=== PATIENT | female | born 1985 | race African-American/Black ===

== ENCOUNTER 2020-04-22 10:58 | Inpatient (IN) | payer OTHER, SELFPAY ==
[2020-04-19 14:46] VITALS: BMI 37.4
[2020-04-22] VITALS (41 sets, daily range): BP systolic 93–154; BP diastolic 38–125; PULSE 72–104; RESP 16–20; TEMP 35.9–36.4; O2SAT 99–100
--- NOTE | 2020-04-22 11:07 | PM.IMHP ---
H&P: HPI History of Present Illness Chief complaint: Section Narrative: Fadumo Warren is a 34 year old female presents for repeat section with tubal ligation. PNC with Dr Paris until the last month, records on chart. Three prior sections, and desires permant sterilization as well, which has been discussed at length. Review of Systems Review of Systems: All systems reviewed & are unremarkable except as noted in HPI and below PMFSH Family History Family History Other Unknown family medical history Social History Social History Smoking status: Never smoker Second hand tobacco smoke exposure: No Substance use: never Gender identity (if verbalized by the patient): Female Spiritual care concerns: No Meds Home Medications and Allergies Home Medications Medication Instructions Recorded Confirmed Type vit no.[id number] tablet 04/19/20 History [Classic ] Allergies Allergy/AdvReac Type Severity Reaction Status Date / Time No Known Allergies Allergy Verified 04/19/20 15:18 Exam Const: General: no acute distress Resp: Auscultation: clear to auscultation bilaterally Cardio: Rate: regular rate Rhythm: regular rhythm GI: GI Palp: Yes Soft to palpation Other: FH 39cm. FHT 140. Assessment and Plan Assessment and plan (1) Term : Code(s): Z34.90 - Encounter for supervision of normal , unspecified, unspecified trimester Status: Acute (2) Previous section: Code(s): Z98.891 - History of uterine scar from previous surgery Status: Acute (3) Encounter for female sterilization procedure: Code(s): Z30.2 - Encounter for sterilization Status: Acute Additional Plan Proceed with repeat with tubal ligation.
[2020-04-22] MEDS: LACTATED RINGERS 1,000 ML 125 ML IV CONT (11:29)
--- NOTE | 2020-04-22 11:31 | LDADM ---
This patient, Fadumo Warren, was admitted to OB Post 113 on 04/22/20 at 10:58. Plans for labor, pain management and were discussed with patient. Patient/family oriented to hospital policies and general routines including ID bracelet, bed and alarms, visiting hours, pain management, procedures, bathroom and other care routines, personal items, smoking policy, room service/diet and guest tray routines, infant security routines, and visiting hours. Patient/Family are encouraged to report perceived risks to care and to ask questions if they do not understand what they are told or what they should do. See OBIX for further documentation.
[2020-04-22 11:32] LABS: Basophils Percent Auto 0.5 % (0.2-1.2); Eosinophils Percent Auto 0.3 % (0-4.4); Hemoglobin 11.7 g/dL (12.0-15.0); Immature Granulocyte Absolute 0.01 K/mm3 (0.00-0.031); Immature Granulocyte Percent A 0.2 % (0-0.5); Lymphocytes Absolute Auto 1.58 K/mm3 (0.9-3.2); Lymphocytes Percent Auto 24.5 % (18.3-44.2); Mean Corpuscular HGB Conc 34.4 g/dl (32-36); Mean Corpuscular Hemoglobin 28.4 pg (26-34); Mean Corpuscular Volume 82.5 fl (80-100); Mean Platelet Volume 11.1 fl (7.4-10.4); Monocytes Absolute Auto 0.6 K/mm3 (0.1-0.6); Monocytes Percent Auto 8.7 % (2.6-8.5); Neutrophils Absolute Auto 4.3 K/mm3 (1.3-6.7); Neutrophils Percent Auto 65.8 % (45.5-73.1); Platelet Count Result 327 k/mm3 (150-375); Red Blood Count 4.12 M/mm3 (4.2-5.4); Red Cell Distribution Width 14.2 % (11.5-14.5); White Blood Count 6.5 K/mm3 (4.5-10.0)
--- NOTE | 2020-04-22 11:51 | P.PNAN_ITS ---
Anes - Initial Pre Proc Eval Procedure: Operation Date: 04/22/20 13:30 Proposed Procedures p Repeat Section With Bilateral Tubal Ligation - Howard Spear MD Date/Time: 04/22/20 11:51 Surgeon: Howard Spear MD Pre Op Diagnosis: Section Patient Data Age: 34 Gender: F Height: 1.65 m Weight: 102 kg Last Vital Signs Pulse 84 04/22/20 11:46 BP 136/78 04/22/20 11:46 Allergies Allergy/AdvReac Type Severity Reaction Status Date / Time No Known Allergies Allergy Verified 04/19/20 15:18 Home Medications Medication Instructions Recorded Confirmed Type vit no.[id number]-ezxjs 1 tablet PO DAILY 04/19/20 04/22/20 History [Classic ] Laboratory Tests 04/22/20 04/22/20 04/22/20 11:20 11:20 11:20 WBC 6.5 K/mm3 K/mm3 (4.5-10.0) RBC 4.12 M/mm3 L M/mm3 (4.2-5.4) Hgb 11.7 g/dL L g/dL (12.0-15.0) Hct 34.0 % L % (37.0-47.0) MCV 82.5 fl fl (80-100) MCH 28.4 pg pg (26-34) MCHC 34.4 g/dl g/dl (32-36) RDW 14.2 % % (11.5-14.5) Plt Count 327 k/mm3 k/mm3 (150-375) MPV 11.1 fl H fl (7.4-10.4) Immature Gran % (Auto) 0.2 % % (0-0.5) Neut % (Auto) 65.8 % % (45.5-73.1) Lymph % (Auto) 24.5 % % (18.3-44.2) [place] % (Auto) 8.7 % H % (2.6-8.5) Eos % (Auto) 0.3 % % (0-4.4) Baso % (Auto) 0.5 % % (0.2-1.2) Lymph # (Auto) 1.58 K/mm3 K/mm3 (0.9-3.2) [place] # (Auto) 0.6 K/mm3 K/mm3 (0.1-0.6) Eos # (Auto) 0.0 K/mm3 K/mm3 (0-0.3) Baso # (Auto) 0.0 K/mm3 K/mm3 (0.0-0.1) Abs Immat Gran (auto) 0.01 K/mm3 K/mm3 (0.00-0.031) Absolute Neuts (auto) 4.3 K/mm3 K/mm3 (1.3-6.7) Absolute Nucleated RBC 0.0 K/mm3 K/mm3 (0.0-0.012) Nucleated RBC % 0.0 % % (0.0-0.2) RPR Pending HIV 1&2 Ab/P24 Ag 4thGn Pending Patient hx anesthesia problems: none Family hx anesthesia problems: none PMFSH Family History Family History Other Unknown family medical history Social History Social History Smoking status: Never smoker Second hand tobacco smoke exposure: No Substance use: never Gender identity (if verbalized by the patient): Female Spiritual care concerns: No Anes - Eval Final PreProcedure Day of Procedure 04/22/20 11:51 Informed Consent: The patient's anesthetic plan and its attendant risks and benefits were discussed with the patient/family/POA. Questions were solicited and answers provided to the satisfaction of the patient/family/POA.
[2020-04-22 12:26] LABS: HIV 1/2 Ab P24 Ag Result Negative (Negative)
[2020-04-22] MEDS: LACTATED RINGERS 1,000 ML 999 ML IV CONT (12:57)
[2020-04-22] MEDS: ceFAZolin 2 GM/D5W 50 ML 2 GM/50 ML BAG IVPB (13:15)
--- NOTE | 2020-04-22 14:13 | PM.OBPRVD ---
OB - Delivery Note Procedure Procedure: Procedures Operation Date: 04/22/20 13:30 <No data on this case meets the specified criteria> Route of delivery: (With right partial salpingectomy (left tube surgically absent)) Specimen: Yes (right tubal segment) Estimated blood loss (mL): 500 Anesthesia type: Spinal Disposition: PACU Narrative: Patient prepped and draped in usual sterile manner for this procedure. Pfannenstiel incision was made and carried down to the fascia which was extended bilaterally the length of the skin incision. Superiorly and inferiorly dissected away from the rectus muscles which were bluntly dissected and the peritoneum was entered. Bladder flap was developed uterus was incised and vertex was delivered without difficulty. Rest of baby was delivered cord clamped and cut, placenta removed manually and the uterus was exteriorized. Placenta was cleared of membranes and clots and approximated using 0 Monocryl in a running interlocking manner with good approximation hemostasis noted. Prior to closing the bladder flap the bladder was dissected off the lower uterine segment. The left fallopian tube was surgically absent. The right fallopian tube was doubly ligated using 0 plain suture had this segment of tube was removed without difficulty. Uterus was returned to the abdomen, gutters were cleared of serosanguineous fluid and clots in the right tubal segment was inspected and noted be hemostatic uterine incision also noted to be hemostatic. All subfascial tissue was noted be hemostatic and the fascia was approximated using 0 Vicryl from the left angle to the midline in the right angle to the midline a running manner with good approximation hemostasis noted. Subcutaneous tissue was approximated 0 plain suture and shanita were used to approximate the skin edges. Baby Weeks of gestation at delivery: 39 gender: Male Weight (pounds): 7 Weight (ounces): 4 score one minute: 8 score five minutes: 9
[2020-04-22] MEDS: KETOROLAC 30 MG/ML VIAL (*BKC) IV PUSH (16:05)
[2020-04-22] MEDS: OXYTOCIN 30 UNITS/NS 500 ML 30 UNITS/500 ML BAG 125 UNITS IV CONT (16:33)
--- NOTE | 2020-04-22 16:42 | OBPPTRN ---
Patient transferred to post room # 280 via stretcher. Support person present. Oriented to unit, room, information board, rooming in, admission packet and security measures. Patient verbalizes understanding.
[2020-04-22] MEDS: LORATADINE 10 MG TABLET PO (18:13)
[2020-04-22] MEDS: DEXTROSE 5%/0.45% SOD CHL 1,000 ML 125 ML IV CONT (20:44)
[2020-04-22] MEDS: IBUPROFEN 600 MG TABLET PO (22:49)
[2020-04-23 04:15] VITALS: BP 121/72; PULSE 89; RESP 16; TEMP 36.6; O2SAT 98
[2020-04-23 05:44] LABS: Basophils Percent Auto 0.2 % (0.2-1.2); Eosinophils Percent Auto 0.2 % (0-4.4); Hemoglobin 9.4 g/dL (12.0-15.0); Immature Granulocyte Absolute 0.03 K/mm3 (0.00-0.031); Immature Granulocyte Percent A 0.3 % (0-0.5); Lymphocytes Absolute Auto 1.63 K/mm3 (0.9-3.2); Lymphocytes Percent Auto 18.3 % (18.3-44.2); Mean Corpuscular HGB Conc 33.6 g/dl (32-36); Mean Corpuscular Hemoglobin 28.3 pg (26-34); Mean Corpuscular Volume 84.3 fl (80-100); Mean Platelet Volume 11.2 fl (7.4-10.4); Monocytes Absolute Auto 0.7 K/mm3 (0.1-0.6); Monocytes Percent Auto 8.3 % (2.6-8.5); Neutrophils Absolute Auto 6.5 K/mm3 (1.3-6.7); Neutrophils Percent Auto 72.7 % (45.5-73.1); Platelet Count Result 247 k/mm3 (150-375); Red Blood Count 3.32 M/mm3 (4.2-5.4); White Blood Count 8.9 K/mm3 (4.5-10.0)
[2020-04-23 07:50] VITALS: BP 121/71; PULSE 87; RESP 18; TEMP 36.8; O2SAT 99
--- NOTE | 2020-04-23 07:51 | WPDANLDNPN2 ---
Anes-Prog Note L&D-Neuraxial Date/Time: 04/23/20 07:51 Neuraxial medications: intrathecal PF morphine Opiod-related complaints: pruritis Patient feedback: Patient satisfied with post-operative pain management.
--- NOTE | 2020-04-23 07:52 | WPDANLDPN2 ---
Anes-Prog Note L&D Date/Time: 04/23/20 07:52 Comfortable throughout: section Neuraxial method: spinal Epidural/Spinal procedure site: clean & non-tender Neuro status: Neuro function grossly intact. Cardiovascular status: normal Respiratory status: normal Airway patency: baseline Mental status: baseline Post-Op hydration status: normal Vital Signs: Last Vital Signs Temp 36.6 C 04/23/20 04:15 Pulse 89 04/23/20 04:15 Resp 16 04/23/20 04:15 BP 121/72 04/23/20 04:15 Pulse Ox 98 04/23/20 04:15 I/O: Intake & Output 04/22/20 04/22/20 04/23/20 15:59 23:59 07:59 Intake Total 2150 800 400 Output Total 508 1200 Balance 2150 292 -800 Post-procedural complaints: none Patient feedback: Patient satisfied with anesthetic care.
[2020-04-23 09:47] LABS: Rapid Plasma Reagin Non-Reactive (NonReactive)
[2020-04-23] MEDS: MULTIVIT/MIN/PREN/FOL AC/IRON TABLET 1 TAB PO (10:01)
[2020-04-23] MEDS: DOCUSATE SODIUM 100 MG CAPSULE PO ×2 (10:02→17:29)
[2020-04-23] MEDS: POLYSACCHARIDE IRON COMPLEX 150 MG CAPSULE PO ×2 (10:03→17:29)
--- NOTE | 2020-04-23 11:05 | PC.NURSE ---
Consulted with patient, mother reports infant is sleepy and is concerned is not getting enough to eat. This is mothers first to breastfeed. Reviewed signs of adequate intake, and infant is feeding as required,has had required output and weight loss WNL. Reviewed feeding cues, frequencies, duration of feedings, feeding elimination flow sheet, and signs of adequate intake. Demonstrated stimulation techniques to wake for feeding. Assisted with infant to breast. Reviewed positioning/alignment in cross cradle, holding breast in U hold and guided asymmetrical latch on. Discussed rational for each. Several attempts before was able to latch correctly. nursed eagerly with steady draws and frequent swallowing for bursts followed with long pausing. Reviewed signs of a correct latch, effective nursing and suck swallow ratio. was able to maintain latch without discomfort to mother. Nipple care reviewed. Suggested to stimulate during entire feeding to keep infant awake and feeding effectively for increased intake and assist maintaining deep latch. Assured mother is feeding as a normal . Instructed mother to call out for RN assistance if she is unable to latch for feeding or she has discomfort with nursing. Instructed feeding should be initiated three hours from start of last feeding or if feeding cues are noted before. Mother voiced understanding of information shared.
[2020-04-23 11:40] VITALS: BP 123/70; PULSE 97; RESP 18; TEMP 36.6; O2SAT 93
[2020-04-23] MEDS: IBUPROFEN 600 MG TABLET PO ×2 (14:36→20:47)
--- NOTE | 2020-04-23 15:30 | PC.NURSE ---
Consult with pt., mother states she has decided to pump and bottle feed. Instructions given on breast pump care and usage, pumping schedule, nipple care, and collection and storage of breast milk. Encouraged [id number], breast massage and manual expression to stimulate supply. Assessed patient for correct flange size, placement and draw. Patient verbalizes and demonstrates understanding of instructions.
--- NOTE | 2020-04-23 16:42 | P.PNOB_ITS ---
OB - PN: Subj Subjective Date/time seen: 04/23/20 16:42 Patient comments: incisional pain and flatus present [place] baby status: doing well Narrative: Doing well, some pain and soreness but pain medications are helping. Ambulated to bathroom. Tolerating diet without issues. Passing flatus. OB - PN: Obj Data Labs CBC & Chem 7: 04/23/20 04:02 Labs: Laboratory Results - last 24 hr 04/22/20 04/23/20 11:20 04:02 WBC 8.9 RBC 3.32 L Hgb 9.4 L Hct 28.0 L MCV 84.3 MCH 28.3 MCHC 33.6 RDW 14.0 Plt Count 247 MPV 11.2 H Immature Gran % (Auto) 0.3 Neut % (Auto) 72.7 Lymph % (Auto) 18.3 [place] % (Auto) 8.3 Eos % (Auto) 0.2 Baso % (Auto) 0.2 Lymph # (Auto) 1.63 [place] # (Auto) 0.7 H Eos # (Auto) 0.0 Baso # (Auto) 0.0 Abs Immat Gran (auto) 0.03 Absolute Neuts (auto) 6.5 Absolute Nucleated RBC 0.0 Nucleated RBC % 0.0 RPR Non-reactive OB - PN A/P Assessment and Plan (1) Delivered by delivery following previous delivery: Code(s): O34.219 - Maternal care for unspecified type scar from previous delivery Status: Acute Assessment and Plan: Routine post op / care Pain management Ambulate Time Spent With Patient Time: Total time spent is greater than 50% in coordination of care (as documented) at patient's floor/unit and/or counseling patient: Exam Const: General: comfortable, no acute distress, alert and awake; No acute distress Orientation/consciousness: patient oriented x3 Resp: Effort & Inspection: normal respiratory effort Cardio: Rate: regular rate GI: Other: some tenderness. Dressing C/D/I Psych: Appearance: grossly normal Affect: normal affect Attitude: cooperative Judgement: Good judgement present (Psych)
[2020-04-23 20:40] VITALS: BP 125/85; PULSE 90; RESP 16; TEMP 36.2; O2SAT 99
[2020-04-24 07:50] VITALS: BP 126/76; PULSE 90; RESP 16; TEMP 36.6; O2SAT 100
[2020-04-24] MEDS: DOCUSATE SODIUM 100 MG CAPSULE PO (09:10)
[2020-04-24] MEDS: MULTIVIT/MIN/PREN/FOL AC/IRON TABLET 1 TAB PO (09:10)
[2020-04-24] MEDS: IBUPROFEN 600 MG TABLET PO (09:11)
[2020-04-24] MEDS: POLYSACCHARIDE IRON COMPLEX 150 MG CAPSULE PO (09:11)
--- NOTE | 2020-04-24 10:00 | PC.NURSE ---
Mother continues to pump without difficulties or discomfort. Mother is feeding as required and waking infant to feed if needed. is currently meeting outcomes for weight, output, jaundice and feeding frequencies. Mother states she feels confident to continue current feeding plan of pump and bottle at home. Reviewed transition to breast milk, signs of adequate intake, and engorgement/relief. Instructed to call ICP if intake/output less than required. Reviewed regular medications mother is taking. Information provided per Debbie. Reviewed community resources on the [employer] website and in the Mom/Baby guide. Information on outpatient services provided. Mother has no further questions at this time.
--- NOTE | 2020-04-24 12:34 | PM.OBDSVD ---
DS: Admitting Diagnosis Admitting Diagnosis Admitting Diagnosis: Encounter for supervision of normal , unspecified, unspecified trimester OB - DS: Summary OB Procedures : None OB Procedures Intrapartum: and Tubal ligation OB Procedures: : None Peripartum Data Procedures: Procedures Operation Date: 04/22/20 13:30 Actual Procedures Side Surgeon p Repeat Section With Bilateral Tubal Ligation Howard Spear MD Time Spent with Patient Time attestation: Total time spent providing and/or coordinating discharge services: DS: Data Data Completed and Pending Pending studies at discharge: Pending at discharge 04/22/20 14:36 Surgical [PTH] Routine Discharge Plan Discharge Discharging Clinician: Howard Spear Patient Disposition: Home, Self-Care Activity: as tolerated Diet: as tolerated Wound Care Instructions: incision open to air Discharge Instructions: office wednesday for staple removal Patient Instructions: Antibiotic Form Stand Alone Forms: General Discharge Information Follow-up/Referrals: Howard Spear MD [Physician] - 3 Weeks Discharge Medications: New hydrocodone-acetaminophen 5-325 mg Tablet 1 tab PO Q3H PRN (Reason: Moderate Pain (4-6)) Qty: 20 RF: 0 ibuprofen 600 mg Tablet 600 mg PO Q6H PRN (Reason: Cramping) Qty: 30 RF: 0 Continued Classic 28 mg iron- 800 mcg Tablet 1 tablet PO DAILY RF: 0 Date of admission: 04/22/20 10:58 Primary Care Provider: Ibrahima Paris Admitting Provider: Howard Spear Attending physician on admission: Howard Spear
[2020-04-26 10:14] VITALS: BP 138/82; PULSE 96; RESP 20; TEMP 37.2; O2SAT 100
== END 2020-04-24 14:48 | disposition home or self-care (01) | DRG 540 ==
LOC: ANHOBPP 11:04 → ANHOB2 16:46
PROVIDERS: Admitting Provider Obstetrics & Gynecology; PCP Obstetrics & Gynecology; Visit Provider Obstetrics & Gynecology
PROC: 10D00Z1 Extraction of Products of Conception, Low, Open Approach (ICD-10-PCS; CPT 59514; principal; 2020-04-22 13:30)
DX: O34.211 Maternal care for low transverse scar from previous cesarean delivery (principal); Z37.0 Single live birth; Z3A.39 39 weeks gestation of pregnancy; Z30.2 Encounter for sterilization; Z90.79 Acquired absence of other genital organ(s)
CPT/HCPCS: 36415; 85025; 86592; 86703; 86850; 86900; 86901; 88302; A9270; G0432; J0131; J0690; J1885; J2274; J2405; J2590; J7120

== ENCOUNTER 2023-08-31 20:39 | Emergency (ER) | payer OTHER, SELFPAY ==
[2023-08-31 20:42] VITALS: BP 150/80; PULSE 100; RESP 20; TEMP 36.7; O2SAT 98
--- NOTE | 2023-08-31 22:23 | ED.GENADULT ---
HPI - General Adult General Chief complaint: Upper Respiratory Infection Stated complaint: sore throat Time Seen by Provider: 08/31/23 21:46 History of Present Illness HPI narrative: This is a 38-year-old female presenting to ED with 3 days of sore throat, body aches, cough and congestion. No fevers. No chest pain difficulty breathing or abdominal pain. Patient has been taking Motrin and Tylenol for pain relief. Related Data Home Medications Medication Instructions Recorded Confirmed vits no.126-ferrous fum 1 tablet PO DAILY 04/19/20 04/22/20 28 mg iron-folic acid 800 mcg tablet (Classic ) Allergies Allergy/AdvReac Type Severity Reaction Status Date / Time No Known Allergies Allergy Verified 08/31/23 21:40 [facility] Family History Family History Other Unknown family medical history Social History Social History Smoking status: Never smoker Second hand tobacco smoke exposure: No Substance use: never Gender identity (if verbalized by the patient): Female Spiritual care concerns: No Exam Narrative: APPEARANCE: No apparent distress. Head: erythema of the posterior oropharynx. No uvular deviation or [employer]. No exudates. EYES: EOMI, NOSE: Atraumatic NECK: Trachea midline RESPIRATORY: No increased rate of breathing CARDIOVASCULAR: RRR, ABDOMINAL: Non-distended MUSCULOSKELETAl: No obvious deformities NEURO: Alert. Moving 4/4 extremities SKIN:: Warm, dry. Normal color PSYCHIATRIC: Normal affect Course Vital Signs Vital signs: Vital Signs Temperature 98.0 F 08/31/23 20:42 Pulse Rate 100 08/31/23 20:42 Respiratory Rate 20 08/31/23 20:42 Blood Pressure 150/80 H 08/31/23 20:42 Pulse Oximetry 98 08/31/23 20:42 Oxygen Delivery Room Air 08/31/23 20:42 Temperature 98.0 F 08/31/23 20:42 Pulse Rate 100 08/31/23 20:42 Respiratory Rate 20 08/31/23 20:42 Blood Pressure 150/80 H 08/31/23 20:42 Pulse Oximetry 98 08/31/23 20:42 Oxygen Delivery Room Air 08/31/23 21:38 Medical Decision Making MDM Narrative Medical decision making narrative: -Course: 38-year-old female presenting with flu-like symptoms and an erythematous oropharynx. Strep and viral swabs negative. Patient be treated with amoxicillin for tonsillitis. -DDX includes but is not limited to: Viral illness, flu COVID strep -Interventions: Toradol, Tylenol, dexamethasone, amoxocillin -Shared decision making / Disposition: discharge -RX: Amoxicillin 500 mg bid x10 days, motrin tylenol Vital Signs Vital Signs: Vital Signs Temperature 98.0 F 08/31/23 20:42 Pulse Rate 100 08/31/23 20:42 Respiratory Rate 20 08/31/23 20:42 Blood Pressure 150/80 H 08/31/23 20:42 Pulse Oximetry 98 08/31/23 20:42 Oxygen Delivery Room Air 08/31/23 20:42 Temperature 98.0 F 08/31/23 20:42 Pulse Rate 100 08/31/23 20:42 Respiratory Rate 20 08/31/23 20:42 Blood Pressure 150/80 H 08/31/23 20:42 Pulse Oximetry 98 08/31/23 20:42 Oxygen Delivery Room Air 08/31/23 21:38 Lab Data Labs: Lab Results 08/31/23 Range/Units 21:50 Influenza A (RT-PCR) Negative (Negative) Influenza B (RT-PCR) Negative (Negative) RSV (RT-PCR) Negative (Negative) SARS-CoV-2 RNA (RT-PCR) Negative (Negative) Group A Strep (PCR) Not detected (Negative) Grp A Beta Strep Ag Cancelled Discharge Plan Discharge Clinical Impression: Acute tonsillitis Patient Disposition: Home, Self-Care Condition: Stable Instructions: Antibiotic Form, Tonsillitis (ED) Additional Instructions: Please use Motrin Tylenol for pain. Please complete a course of amoxicillin. If you feel short of breath, cannot swallow your own spit or failure getting worse please return to the emergency department. Prescriptions: New amoxicillin 500 mg
[2023-08-31 22:26] LABS: Strep Group A RT-PCR NOT DETECTED (Negative)
[2023-08-31 22:32] LABS: Influenza A QL RT-PCR Negative (Negative); Influenza B QL RT-PCR Negative (Negative); RSV RNA, RT-PCR Negative (Negative); SARS-CoV-2 RNA PCR Negative (Negative)
[2023-08-31] MEDS: ACETAMINOPHEN 500 MG TABLET 1000 MG PO (22:41)
[2023-08-31] MEDS: KETOROLAC 30 MG/ML VIAL (*BKC) 15 MG IM (22:42)
== END 2023-08-31 22:49 | disposition home or self-care (01) ==
PROVIDERS: Emergency Provider Emergency Medicine; PCP Obstetrics & Gynecology
DX: J03.90 Acute tonsillitis, unspecified (principal); Z20.822 Contact with and (suspected) exposure to COVID-19
CPT/HCPCS: 87637; 87651; 87880; 96372; 99284; A9270; J1100; J1885